=== PATIENT | female | born 1990 | race Caucasian/White ===

== ENCOUNTER 2024-09-08 18:53 | Emergency (ER) | payer BC, SELFPAY ==
[2024-09-08] VITALS (9 sets, daily range): BP systolic 121–129; BP diastolic 85–97; PULSE 78–88; RESP 10–18; TEMP 36.4; O2SAT 93–100
[2024-09-08 23:29] LABS: Add Urine Microscopic? NO; Appearance Urine Clear (Clear); Basophils Percent Auto 0.4 % (0.2-1.2); Bilirubin Urine Negative (Negative); Blood Urine Negative (Negative); Color Urine Yellow (Yellow); Eosinophils Absolute Auto 0.1 K/mm3 (0-0.3); Eosinophils Percent Auto 2.3 % (0-4.4); Glucose Urine UA Negative (Negative); Hematocrit 38.2 % (37.0-47.0); Hemoglobin 12.8 g/dL (12.0-15.0); Immature Granulocyte Absolute 0.01 K/mm3 (0.00-0.031); Immature Granulocyte Percent A 0.2 % (0-0.5); Ketones Urine Negative (Negative); Leukocyte Esterase Ur Negative LEU/UL (Negative); Lymphocytes Absolute Auto 1.93 K/mm3 (0.9-3.2); Lymphocytes Percent Auto 34.2 % (18.3-44.2); Mean Corpuscular HGB Conc 33.5 g/dl (32-36); Mean Corpuscular Hemoglobin 29.9 pg (26-34); Mean Corpuscular Volume 89.3 fl (80-100); Mean Platelet Volume 9.3 fl (7.4-10.4); Monocytes Absolute Auto 0.5 K/mm3 (0.1-0.6); Monocytes Percent Auto 8.3 % (2.6-8.5); Neutrophils Absolute Auto 3.1 K/mm3 (1.3-6.7); Neutrophils Percent Auto 54.6 % (45.5-73.1); Nitrate Urine Negative (Negative); Platelet Count Result 254 k/mm3 (150-375); Protein Urine Negative (Negative); Red Blood Count 4.28 M/mm3 (4.2-5.4); Red Cell Distribution Width 11.9 % (11.5-14.5); Urobilinogen Urine 0.2 mg/dL (<2.0); White Blood Count 5.7 K/mm3 (4.5-10.0)
[2024-09-08 23:43] LABS: Alanine Aminotransferase 15 U/L (6-35); Albumin Level 3.9 g/dL (3.5-5.1); Alkaline Phosphatase 54 U/L (38-126); Anion Gap 3 mmol/L (4-12); Aspartate Amino Transferase 26 U/L (14-36); Bilirubin,Total 0.5 mg/dL (0.2-1.3); Blood Urea Nitrogen 18 mg/dL (7-17); Calcium 8.9 mg/dL (8.4-10.2); Carbon Dioxide 24 mmol/L (22-30); Chloride 108 mmol/L (98-107); Estimated CRCL calculation 83 ml/min; Estimated Glomerular Filt Rate > 60; Glucose 94 mg/dL (65-110); Magnesium 1.9 mg/dL (1.6-2.3); Potassium 3.4 mmol/L (3.4-5.0); Sodium 135 mmol/L (137-145)
[2024-09-08 23:47] LABS: D Dimer < 0.27 ug/mL (<0.48)
[2024-09-08 23:51] LABS: NT Pro B Type Natriuretic Pept < 20 pg/mL (19.9-100)
[2024-09-08 23:52] LABS: SPREG INTERNAL CONTROL Positive; Serum Qual hCG Negative
[2024-09-09 00:01] VITALS: BP 141/102; PULSE 95; RESP 17; O2SAT 99
[2024-09-09 00:02] VITALS: PULSE 96; RESP 17
[2024-09-09 00:15] VITALS: PULSE 77; RESP 13
[2024-09-09 00:16] VITALS: BP 121/92; PULSE 78; RESP 13
--- NOTE | 2024-09-09 00:16 | ED_ITS ---
HPI - Back Pain/Injury General Chief Complaint: Back Pain/Injury Stated Complaint: back pain and L leg swelling Time Seen by Provider: 09/08/24 22:25 History of Present Illness HPI Narrative: Patient is a 33-year-old female who presents the emergency department this evening complaining of a midthoracic back pain since Sunday. Patient admits that pain started shortly after she lifted a heavy suitcase but states that she does work out and does weightlifting but cannot recall any thing that she has done that is out of the ordinary. Denies any falls or trauma. Patient also complains of left lower extremity swelling but she states that this is a chronic condition for her which they believe that is either lymphedema or leaky valves. Patient states that she has been using Aleve and icy Hot to help with the pain with minimal to no relief. She admits that the pain is worse with movement and when she takes a deep breath. Rates her some pain a 4/10 as a constant dull pain. Denies any urinary symptoms including dysuria or hematuria, denies any respiratory symptoms including any cough, nasal congestion, shortness of breath, and denies any fevers or chills. No additional symptoms or concerns at this time. Related Data Allergies Allergy/AdvReac Type Severity Reaction Status Date / Time No Known Allergies Allergy Verified 09/09/24 00:18 Review of Systems 2 Review of Systems: All systems are reviewed and are negative unless stated otherwise in the HPI. Exam 2 Narrative: General: Alert, awake, afebrile, in no acute distress. HEENT: PERRL, no rhinorrhea, no post nasal drip, oropharynx clear. Neck: Trachea midline, no JVD, no lymphadenopathy. Cardiovascular: Regular rate and rhythm, no murmurs, rubs or gallops, no peripheral edema. Respiratory: Clear to auscultation bilaterally, no tachypnea, no wheezing, no rhonchi, no rubs, no respiratory distress. Abdomen: Soft, nontender, nondistended, no rebound, no guarding, no peritoneal signs. Musculoskeletal: No joint swelling or deformity, normal muscle tone, chronic left lower extremity swelling patient currently wearing compression stockings. Back: No midline tenderness to palpation over the cervical, thoracic or lumbar spine, no step-offs or deformities. Skin: No rashes or petechia, no signs of infection. Psychiatric: Alert and oriented, normal behavior and judgment for situation. Neurological: Alert and oriented to person, place, and time. Follows all commands. No focal deficits, speech is clear and fluent. Course Vital Signs Vital signs: Vital Signs Temperature 97.6 F 09/08/24 20:05 Pulse Rate 88 09/08/24 20:05 Respiratory Rate 14 09/08/24 20:05 Blood Pressure 125/85 09/08/24 20:05 Pulse Oximetry 100 09/08/24 20:05 Temperature 97.6 F 09/08/24 20:05 Pulse Rate 78 09/08/24 23:46 Respiratory Rate 12 09/08/24 23:46 Blood Pressure 121/86 09/08/24 23:45 Pulse Oximetry 98 09/08/24 23:46 MDM - Back Pain/Injury MDM Narrative Medical decision making narrative: The patient was evaluated by myself in the emergency department. History is obtained from patient who is an independent historian and physical exam was performed. External medical records were reviewed at this time. IV was established and pertinent tests were ordered. Patient was administered a Lidoderm patch. Laboratory results obtained revealing no acute process. D-dimer negative, BNP negative. Urinalysis unremarkable with no evidence of hematuria. Patient was informed of these findings at bedside. At this time shared medical decision- making with the patient regarding obtaining imaging results was discussed. Did inform patient that MRI is a test of choice and given her benign examination and blood work I do not feel as though a CT scan is going to show us a much given the lack of trauma and I do not want to expose her to unnecessary radiation. Patient is agreeable with this plan. Patient is also planning on following up with vascular surgeon regarding her left lower extremity edema. Differential diagnosis considerations include musculoskeletal strain, herniated disc, pulmonary emboli, kidney stones. Comorbidities impacting this visit include none. I have evaluated and discussed social determinants of health with the patient that could potentially impact subsequent diagnosis and treatment plans. On repeat assessment of the patient, reevaluation revealed that the patient is doing well and is in no acute distress. Patient symptoms have improved since she arrived to our emergency department. Repeat vital signs were all reviewed and noted to be stable. Differential diagnosis and treatment plan were discussed with the patient at bedside. Patient agrees with discussion and after shared medical decision making agrees with discharge. All questions were answered to the patient's satisfaction. Patient will follow up with PCP in 3-5 days. Script for Robaxin and Lidoderm patches were provided to the patient and she was instructed to use these in addition to ibuprofen as needed for pain. If her symptoms do not improve within the next 3-5 patient was informed that she may need an MRI for further evaluation of her thoracic back pain and patient is agreeable with this plan. Patient was provided with strict return precautions and instructed to return to the emergency department if any new or worsening symptoms develop. The patient was discharged in stable condition. Lab Data 09/08/24 23:08 09/08/24 23:08 Labs: Lab Results 09/08/24 Range/Units 23:08 WBC 5.7 (4.5-10.0) K/mm3 RBC 4.28 (4.2-5.4) M/mm3 Hgb 12.8 (12.0-15.0) g/dL Hct 38.2 (37.0-47.0) % MCV 89.3 (80-100) fl MCH 29.9 (26-34) pg MCHC 33.5 (32-36) g/dl RDW 11.9 (11.5-14.5) % Plt Count 254 (150-375) k/mm3 MPV 9.3 (7.4-10.4) fl Immature Gran % (Auto) 0.2 (0-0.5) % Neut % (Auto) 54.6 (45.5-73.1) % Lymph % (Auto) 34.2 (18.3-44.2) % [place] % (Auto) 8.3 (2.6-8.5) % Eos % (Auto) 2.3 (0-4.4) % Baso % (Auto) 0.4 (0.2-1.2) % Lymph # (Auto) 1.93 (0.9-3.2) K/mm3 [place] # (Auto) 0.5 (0.1-0.6) K/mm3 Eos # (Auto) 0.1 (0-0.3) K/mm3 Baso # (Auto) 0.0 (0.0-0.1) K/mm3 Abs Immat Gran (auto) 0.01 (0.00-0.031) K/mm3 Absolute Neuts (auto) 3.1 (1.3-6.7) K/mm3 Absolute Nucleated RBC 0.000 (0.0-0.012) K/mm3 Nucleated RBC % 0.0 (0.0-0.2) % D-Dimer < 0.27 (<0.48) ug/mL Sodium 135 L (137-145) mmol/L Potassium 3.4 (3.4-5.0) mmol/L Chloride 108 H (98-107) mmol/L Carbon Dioxide 24 (22-30) mmol/L Anion Gap 3 L (4-12) mmol/L BUN 18 H (7-17) mg/dL Creatinine 0.80 (0.7-1.0) mg/dL Estim Creat Clear Calc 83 ml/min Estimated GFR > 60 (59 - ) Glucose 94 (65-110) mg/dL Calcium 8.9 (8.4-10.2) mg/dL Magnesium 1.9 (1.6-2.3) mg/dL Total Bilirubin 0.5 (0.2-1.3) mg/dL AST 26 (14-36) U/L ALT 15 (6-35) U/L Alkaline Phosphatase 54 (38-126) U/L NT-Pro-B Natriuret Pep < 20 (19.9-100) pg/mL Total Protein 7.0 (6.3-8.2) g/dL Albumin 3.9 (3.5-5.1) g/dL Serum HCG, Qual Negative Urine Color Yellow (Yellow) Urine Appearance Clear (Clear) Urine pH 7.0 (5.0-9.0) Ur Specific [place] 1.010 (1.001-1.035) Urine Protein Negative (Negative) mg/dL Urine Glucose (UA) Negative (Negative) mg/dL Urine Ketones Negative (Negative) mg/dL Ur Blood (Man) Negative (Negative) Urine Nitrate Negative (Negative) Urine Bilirubin Negative (Negative) Urine Urobilinogen 0.2 (<2.0) mg/dL Leukocyte Esterase Rfl Negative (Negative) WADE/UL Discharge Plan Discharge Clinical Impression: Back pain, thoracic Patient Disposition: Home, Self-Care Condition: Stable Instructions: Antibiotic Form, Thoracic Back Strain (ED) Additional Instructions: Please use the prescribed a muscle relaxers and Lidoderm patches as needed for pain along with ibuprofen. Follow-up with your family doctor within the next 3- 5 days. If your symptoms persist despite these medications you were informed that you may need an MRI for further evaluation IV thoracic back. Return to the emergency department if any new or worsening symptoms develop. Patient Language: Thai Prescriptions: New lidocaine [Lidoderm] 5 % adhesive patch,medicated 1 patch topical DAILY Qty: 15 0RF Rx Instructions: leave on most painful area for up to 12 hrs methocarbamol 750 mg tablet 750 mg PO TID PRN (Reason: muscle pain) Qty: 14 0RF Follow-up/Referrals: Sharri Serrano DO [Physician] - 1 Week UNKNOWN,DOCTOR [Primary Care Provider] - Time of Disposition: 00:21
[2024-09-09 00:30] VITALS: PULSE 83; RESP 22
[2024-09-09 00:31] VITALS: BP 116/85
[2024-09-09] MEDS: LIDOCAINE 5% PATCH 1 PATCH TRANSDERM (00:37)
== END 2024-09-09 00:39 | disposition home or self-care (01) ==
PROVIDERS: Emergency Provider Emergency Medicine
DX: M54.6 Pain in thoracic spine (principal)
CPT/HCPCS: 36415; 80053; 81003; 83735; 83880; 84703; 85025; 85380; 99283; A9270